=== PATIENT | male | born 1945 | race Caucasian/White ===

== ENCOUNTER → 2017-06-21 | Emergency (ER) | payer OTHER ==
[~2017-06-21] VITALS: Ht 170.2 cm; Wt 86.2 kg
[~2017-06-21] MED LIST: AZITHROMYCIN250 MG PO; CLARITIN-D 121 EACH PO; FLOVENT 110MCG7.9 GM IH; GUAIFENESIN DM118 M1 PO; PROVENTIL HFA6.7 GM IH; PROVENTIL3 ML/2.5 M IH; TUSSI PRES-B L120 M1 PO; ULTRACET PO
== END | disposition home or self-care (01) ==
LOC: ER 19:54
DX: R06.02 Shortness of breath (principal)

== ENCOUNTER 2018-05-29 07:54 | Outpatient (CLI) | payer OTHER | END 2018-05-29 15:00 | disposition home or self-care (01) | LOC: LAB 07:54 | DX: I10 Essential (primary) hypertension (principal); E11.9 Type 2 diabetes mellitus without complications; E03.8 Other specified hypothyroidism; E78.2 Mixed hyperlipidemia; K92.1 Melena; N40.0 Benign prostatic hyperplasia without lower urinary tract symptoms; E55.9 Vitamin D deficiency, unspecified ==

== ENCOUNTER 2018-05-30 11:32 | Outpatient (CLI) | payer OTHER | END 2018-05-30 15:00 | disposition home or self-care (01) | LOC: LAB 11:32 | DX: I10 Essential (primary) hypertension (principal); E11.9 Type 2 diabetes mellitus without complications; E03.8 Other specified hypothyroidism; E78.2 Mixed hyperlipidemia; K92.1 Melena; N40.0 Benign prostatic hyperplasia without lower urinary tract symptoms; E55.9 Vitamin D deficiency, unspecified ==

== ENCOUNTER 2018-07-02 07:36 | Outpatient (CLI) | payer OTHER | END 2018-07-02 07:40 | disposition home or self-care (01) | LOC: LAB 07:36 | DX: E78.2 Mixed hyperlipidemia (principal) ==

== ENCOUNTER 2019-04-12 06:52 | Outpatient (CLI) | payer OTHER | END 2019-04-12 07:01 | disposition home or self-care (01) | LOC: LAB 06:52 | DX: R10.84 Generalized abdominal pain (principal); M46.47 Discitis, unspecified, lumbosacral region; I10 Essential (primary) hypertension; E11.9 Type 2 diabetes mellitus without complications; E03.8 Other specified hypothyroidism; E78.2 Mixed hyperlipidemia; N39.0 Urinary tract infection, site not specified ==

== ENCOUNTER 2019-07-01 07:10 | Outpatient (CLI) | payer OTHER | END 2019-07-01 07:21 | disposition home or self-care (01) | LOC: RAD 07:10 → MAMO-SONO 07:15 → RAD 07:21 | DX: R10.84 Generalized abdominal pain (principal) ==

== ENCOUNTER 2019-07-02 07:37 | Outpatient (CLI) | payer OTHER | END 2019-07-02 07:40 | disposition home or self-care (01) | LOC: RAD 07:37 | DX: J44.9 Chronic obstructive pulmonary disease, unspecified (principal) ==

== ENCOUNTER 2019-09-19 00:37 | Emergency (ER) | payer OTHER ==
[~2019-09-19] VITALS: Ht 177.8 cm; Wt 80.7 kg
[2019-09-19] MEDS ORDERED: ALBUTEROL2.5 MG/3 M IH (02:09)
== END 2019-09-19 02:18 | disposition home or self-care (01) ==
LOC: ER 00:37
DX: R06.02 Shortness of breath (principal)

== ENCOUNTER 2019-10-11 07:39 | Outpatient (CLI) | payer OTHER ==
[~2019-10-11 07:39] MED LIST changes: +ALBUTEROL2.5 MG/3 M IH
== END 2019-10-11 07:47 | disposition home or self-care (01) ==
LOC: TOM 07:39
PROVIDERS: ATTEND Internal Medicine Cardiovascular Disease
DX: C34.90 Malignant neoplasm of unspecified part of unspecified bronchus or lung (principal)

== ENCOUNTER → 2019-10-13 | Emergency (ER) | payer OTHER ==
[~2019-10-13] VITALS: Ht 175.3 cm; Wt 79.4 kg
== END | disposition left against medical advice (07) ==
LOC: ER 00:32
DX: J90 Pleural effusion, not elsewhere classified (principal)

== ENCOUNTER 2019-10-22 06:29 | Outpatient (CLI) | payer OTHER | END 2019-10-22 06:34 | disposition home or self-care (01) | LOC: LAB 06:29 | DX: R79.1 Abnormal coagulation profile (principal); Z01.812 Encounter for preprocedural laboratory examination ==

== ENCOUNTER 2019-11-25 14:49 | Emergency (ER) | payer OTHER ==
[~2019-11-25] VITALS: Ht 180.3 cm; Wt 77.1 kg
[2019-11-25] MEDS ORDERED: BACLOFEN20 MG (15:16)
[2019-11-25] MEDS ORDERED: CAMBIA50 MG (15:16)
== END 2019-11-25 18:00 | disposition home or self-care (01) ==
LOC: ER 14:49
DX: R07.89 Other chest pain (principal); C34.90 Malignant neoplasm of unspecified part of unspecified bronchus or lung